=== PATIENT | male | born 1960 | race Caucasian/White ===

== ENCOUNTER 2025-07-12 08:44 | Outpatient (CLI) | payer BC ==
[2025-07-12 10:19] LABS: Estimated GFR - POC 97.0
== END 2025-07-12 08:45 | disposition home or self-care (01) ==
LOC: CSHCT 08:44
PROVIDERS: ATTEND Family Medicine
DX: K40.20 Bilateral inguinal hernia, without obstruction or gangrene, not specified as recurrent (principal); K76.0 Fatty (change of) liver, not elsewhere classified
CPT/HCPCS: 36415; 74177; 82565